=== PATIENT | male | born 1985 | race Caucasian/White ===

== ENCOUNTER 2017-01-17 02:26 | Emergency (ER) | payer OTHER ==
[2017-01-17] MEDS ORDERED: SODIUM CHLORIDE 0.9% 1,000 ML IV ONE (02:46)
--- NOTE | 2017-01-17 02:51 | ED Physician Documentation ---
PD HPI SYNCOPE - Stated complaint Stated Complaint: HEAD INJURY - Chief complaint Chief Complaint: Trauma Hd/Nk - History obtained from History obtained from: Patient, Family (Spouse) - History of Present Illness Witnessed: Witnessed (by spouse) Timing - onset: How many hours ago (1) Duration: Seconds Preceding symptoms: Light headed Associated symptoms: None Contributing factors: Emotional upset Injury occurred: Fell, Head injury Similar symptoms before: Has not had sx before - Additional information Additional information: The patient is a 31-year-old male who had a syncopal episode less than 1 hour prior to arrival when he saw blood in the commode from his 's vaginal bleeding. He passed out, hitting his head on the floor. His states he regained consciousness immediately, within seconds. There was no seizure activity. The patient does not recall the incident, or the circumstances. He reports nausea, and has had one episode of vomiting while in route to the hospital. He had complained of headache at home, but denies headache currently. He denies neck pain. He has no history of similar symptoms in the past. Review of Systems Constitutional: denies: Fever Eyes: denies: Decreased vision Ears: denies: Tinnitus/ringing Nose: denies: Congestion Throat: denies: Sore throat Cardiac: denies: Chest pain / pressure Respiratory: denies: Dyspnea, Cough GI: reports: Nausea, Vomiting (1). denies: Abdominal Pain : denies: Dysuria, Incontinent Skin: reports: Abrasion (s) (Upper lip) Musculoskeletal: denies: Neck pain, Back pain, Extremity pain Neurologic: reports: Syncope, Confused, Head injury. denies: Focal weakness, Numbness PD PAST MEDICAL HISTORY - Past Medical History Cardiovascular: None Respiratory: None Neuro: None Endocrine/Autoimmune: None - Past Surgical History Past Surgical History: No - Present Medications Home Medications: Ambulatory Orders Medication Instructions Recorded Confirmed Cyclobenzaprine [Flexeril] 10 mg PO TID PRN #20 tablet 04/28/14 Ibuprofen [Motrin] 800 mg PO Q8H PRN #30 tablet 04/28/14 Oxycodone HCl/Acetaminophen 1 - 2 each PO Q6H PRN #15 tablet 04/28/14 [Percocet 5-325 mg Tablet] Ibuprofen [Motrin] 800 mg PO Q8H PRN #30 tablet 06/01/15 - Allergies Allergies/Adverse Reactions: Allergies Allergy/AdvReac Type Severity Reaction Status Date / Time No Known Drug Allergies Allergy Verified 11/02/13 18:20 - Living Situation Living Situation: reports: With spouse/s.o. - Social History Does the pt smoke?: No Smoking Status: Never smoker Does the pt drink ETOH?: No Does the pt have substance abuse?: No - Immunizations Immunizations are current?: Yes - POLST Patient has POLST: No PD ED PE NORMAL - Vitals Vital signs reviewed: Yes (Borderline hypertension.) - General General: Well developed/nourished, Other (Alert, overweight male, who is holding a bag of frozen vegetables to his lip.) - HEENT HEENT: PERRL, EOMI, Ears normal, Pharynx benign, Dentition benign, Other (There is mild swelling and superficial abrasion to the right side of the upper lip, as well as the lower lip. There is no laceration, and dentition is intact. There is no mandibular tenderness to palpation.) - Neck Neck: No bony TTP, No adenopathy, No JVD, Other (Full cervical range of motion without tenderness.) - Cardiac Cardiac: RRR, No murmur - Respiratory Respiratory: No respiratory distress, Clear bilaterally, Other (No chest wall tenderness.) - Abdomen Abdomen: Soft, Non tender - Back Back: No CVA TTP, No spinal TTP - Derm Derm: No rash - Extremities Extremities: No tenderness to palpate, Normal ROM s pain - Neuro Neuro: delivery professional 2-12 intact, No motor deficit, No sensory deficit, Normal speech, Other (Alert but amnestic to the event surrounding his syncopal episode. He is disoriented to date, but knows the year as 2016.) Eye Opening: Spontaneous Motor: Obeys Commands Verbal: Confused GCS Score: 14 Results - Vitals Vitals: Vital Signs - 24 hr 01/17/17 01/17/17 01/17/17 02:35 04:32 05:26 Temperature 35.9 C L 36.1 C L Heart Rate 79 94 88 Respiratory 16 16 18 Rate Blood Pressure 131/92 H 152/98 H 147/89 H O2 Saturation 99 98 99 Oxygen O2 Source Room air - EKG (time done) 04:05 Rate: Rate (enter#) (86) Rhythm: NSR Interior: Normal Intervals: Normal IN Ischemia: Other (ST elevation of <1 mm in I and aVL.) Compare to prior EKG: Old EKG unavailable Computer interpretation: Disagree with computer (Doubt recent lateral infarct.) - Labs Labs: Laboratory Tests 01/17/17 01/17/17 01/17/17 03:47 03:47 03:47 WBC 8.3 RBC 5.01 Hgb 14.7 Hct 43.1 MCV 86.1 MCH 29.3 MCHC 34.0 RDW 13.1 Plt Count 212 MPV 8.3 Neut # 5.9 Lymph # 1.7 [place] # 0.5 Eos # 0.1 Baso # 0.1 Absolute Nucleated RBC 0.00 Nucleated RBC % 0.0 PT 12.7 H INR 1.1 APTT 25.0 Sodium 137 Potassium 4.1 Chloride 107 Carbon Dioxide 24 Anion Gap 6.0 BUN 17 Creatinine 1.0 Estimated GFR (MDRD) 87 L Glucose 128 H Calcium 8.9 Troponin I 01/17/17 03:47 WBC RBC Hgb Hct MCV MCH MCHC RDW Plt Count MPV Neut # Lymph # [place] # Eos # Baso # Absolute Nucleated RBC Nucleated RBC % PT INR APTT Sodium Potassium Chloride Carbon Dioxide Anion Gap BUN Creatinine Estimated GFR (MDRD) Glucose Calcium Troponin I < 0.04 - Rads (name of study) Head CT w/o Radiology: Prelim report reviewed, EMP read contemporaneously, See rad report ( Acute parafalcine and bilateral tentorial subdural hematomas measuring up to 2 mm. No associated mass-effect or midline shift.) CT C-spine Radiology: Prelim report reviewed, EMP read contemporaneously, See rad report ( No acute cervical spine fracture or malalignment. 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 His neurologic exam is significant for amnesia and perseveration, with a GCS of 14. There is no focal motor or sensory deficit detected. CT of the cervical spine reveals no acute C-spine abnormality. Electrocardiogram reveals no rhythm disturbance, but does show a less than [address] elevation in lateral leads I and aVL. I doubt that this represents cardiac ischemia. Troponin is normal. CBC and chemistry panel are normal. Treatment in the emergency department included administration of normal saline IV, and Zofran 4 mg IV x 2. I discussed his condition with Dr. Baig, the neurosurgeon on-call at [facility]. He will accept the patient in transfer. Transfer forms were completed. He is being transferred by [facility]. Departure - Departure Disposition: 02 Transfer Acute Care Hosp Clinical Impression: Subdural hemorrhage Condition: Stable Discharge Date/Time: 01/17/17 06:15
--- NOTE | 2017-01-17 03:21 | CT Preliminary Report ---
Exam: CT HEAD W/O IMPRESSION: 1. Acute parafalcine and bilateral tentorial subdural hematomas measure up to 2 mm. 2. No associated mass effect or midline shift. [facility] The above critical findings were discussed with Dr. Sauceda by Dr. Meseret Baird at 03:20 hrs on 01/17/17. SITE ID: [id number]
--- NOTE | 2017-01-17 03:28 | CT Report ---
EXAM: CT HEAD EXAM DATE: 01/17/2017 03:09 AM. CLINICAL HISTORY: Syncope with head injury, amnesia, and vomiting. COMPARISON: None. TECHNIQUE: Multiaxial CT images were obtained from the foramen magnum to the vertex. Reformats: Coron al. IV contrast: None. In accordance with CT protocol optimization, one or more of the following dose reduction techniques w ere utilized for this exam: automated exposure control, adjustment of mA and/or KV based on patient s ize, or use of iterative reconstructive technique. FINDINGS: Parenchyma: No intraparenchymal hemorrhage. No evidence of mass, midline shift, or CT findings of inf arction. Tovar-white differentiation is distinct. Extraaxial Spaces: Acute parafalcine and bilateral tentorial subdural hematomas are present measuring 12 mm, greatest along the left tentorial leaf. Ventricles: Normal in size and position. Sinuses and Orbits: Imaged paranasal sinuses, orbits, and mastoids show no significant abnormality. Bones: No evidence of fracture or calvarial defect. IMPRESSION: 1. Acute parafalcine and bilateral tentorial subdural hematomas measure up to 2 mm. 2. No associated mass effect or midline shift. [facility] The above critical findings were discussed with Dr. Sauceda by Dr. Meseret Baird at 03:20 hrs on 01/17/17. Referring Provider Line: [phone] SITE ID: [id number]
[2017-01-17] MEDS ORDERED: ONDANSETRON 4 MG/2 ML VIAL IVP STA ×2 (03:30→04:29)
[2017-01-17] MEDS ORDERED: ONDANSETRON 4 MG/2 ML VIAL ONE ×2 (03:38→04:43)
[2017-01-17 03:54] LABS: BASOPHILS # (AUTO) 0.1 10^3/uL (0.0-0.1); BASOPHILS % (AUTO) 0.7 %; EOSINOPHILS # (AUTO) 0.1 10^3/uL (0.0-0.7); EOSINOPHILS % (AUTO) 1.5 %; HCT - HEMATOCRIT 43.1 % (42.0-52.0); HGB - HEMOGLOBIN 14.7 g/dL (14.0-18.0); LYMPHOCYTES # (AUTO) 1.7 10^3/uL (1.5-3.5); LYMPHOCYTES % (AUTO) 20.8 %; MEAN CORPUSCULAR HEMOGLOBIN 29.3 pg (27.0-31.0); MEAN CORPUSCULAR VOLUME 86.1 fL (80.0-94.0); MEAN PLATELET VOLUME 8.3 fL (7.4-11.4); MONOCYTES # (AUTO) 0.5 10^3/uL (0.0-1.0); MONOCYTES % (AUTO) 6.3 %; NEUTROPHILS # (AUTO) 5.9 10^3/uL (1.5-6.6); NEUTROPHILS % (AUTO) 70.7 %; RED BLOOD COUNT 5.01 10^6/uL (4.70-6.10); RED CELL DISTRIBUTION WIDTH 13.1 % (12.0-15.0); UNCORRECTED WHITE BLOOD COUNT 8.3 x10^3/uL; WHITE BLOOD COUNT 8.3 x10^3/uL (4.8-10.8)
[2017-01-17 04:03] LABS: CALCIUM 8.9 mg/dL (8.5-10.3); POTASSIUM 4.1 mmol/L (3.5-5.0)
[2017-01-17 04:04] LABS: INR 1.1 (0.8-1.2); PT - PROTHROMBIN TIME 12.7 secs (9.9-12.6)
--- NOTE | 2017-01-17 04:12 | CT Preliminary Report ---
Exam: CT CERVICAL SPINE W/O IMPRESSION: 1. No acute cervical spine fracture or malalignment. 2. 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 [facility] SITE ID: [id number]
--- NOTE | 2017-01-17 04:41 | CT Report ---
EXAM: CT CERVICAL SPINE WITHOUT CONTRAST DATE: 01/17/2017 03:52 AM. HISTORY: Vomiting, subdural hematoma, fall. COMPARISONS: None. TECHNIQUE: Thin-section axial images were acquired of the cervical spine without contrast. Post-proce ssing: Coronal and sagittal reformats. Other: None. In accordance with CT protocol optimization, one or more of the following dose reduction techniques w ere utilized for this exam: automated exposure control, adjustment of mA and/or KV based on patient s ize, or use of iterative reconstructive technique. FINDINGS: Alignment: Normal. No scoliosis or spondylolisthesis. Bones: There is fusion of the C4 and C5 vertebral bodies as well as the left facet joint, likely yen enital. No acute cervical spine fracture is identified. Interspace Levels/Facets: C1-C2: Unremarkable. C2-C3: Unremarkable. C3-C4: There is mild left foraminal narrowing due to uncovertebral hypertrophy. The spinal canal and right foramen are patent. C4-C5: Unremarkable. C5-C6: Unremarkable. C6-C7: Unremarkable. C7-T1: Unremarkable. Musculature: Normal. No fatty atrophy. Other: The paravertebral and prevertebral soft tissues are normal. The lung apices are clear. IMPRESSION: 1. No acute cervical spine fracture or malalignment. 2. 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 [facility] Referring Provider Line: [phone] SITE ID: [id number]
[2017-01-17 05:38] VITALS: BP 147/89
== END 2017-01-17 06:15 | disposition short-term general hospital (02) ==
LOC: ED 02:26
DX: S06.5X1A Traumatic subdural hemorrhage with loss of consciousness of 30 minutes or less, initial encounter (principal); W18.39XA Other fall on same level, initial encounter; Y92.012 Bathroom of single-family (private) house as the place of occurrence of the external cause
CPT/HCPCS: 36415; 70450; 72125; 80048; 84484; 85025; 85610; 85730; 93005; 96361; 96374; 96376; 99284; 99285